=== PATIENT | female | born 1965 | race Caucasian/White ===

== ENCOUNTER 2019-10-12 13:36 | Outpatient (CLI) | payer OTHER, SELFPAY ==
--- NOTE | ~2019-10-12 | US_ITS ---
EXAMINATION: US pelvic complete w TV DATE: 10/12/2019 14:58 INDICATION: Abnormal uterine bleeding. Comparison:No prior studies for comparison. TECHNIQUE: Multiple transabdominal and endovaginal sonographic images of the pelvis performed. FINDINGS: The uterus measures 7.9 x 5.7 x 4 cm. The endometrial complex measures 8 mm. The right ovary measures 3.5 x 3 x 2.5 cm and the left ovary measures 2.1 x 1.5 x 1.4 cm. There is a 2.8 cm right ovarian cyst. There are small follicles in each ovary. There is no free fluid in the pelvis. There are no abnormal masses seen on either side. IMPRESSION: 1. 2.8 cm right ovarian cyst. Reviewed, dictated and finalized at location B.
== END 2019-10-12 13:37 | disposition home or self-care (01) ==
PROVIDERS: PCP Physician Assistant; Visit Provider Physician Assistant
DX: N93.9 Abnormal uterine and vaginal bleeding, unspecified (principal); N83.201 Unspecified ovarian cyst, right side
CPT/HCPCS: 76830; 76856

== ENCOUNTER 2020-07-17 09:52 | Emergency (ER) | payer OTHER, SELFPAY ==
[2020-07-17 10:00] VITALS: BP 125/62; PULSE 77; RESP 13; TEMP 36.8; O2SAT 98
[2020-07-17 10:02] VITALS: BP 125/62; PULSE 83; RESP 11; O2SAT 99
[2020-07-17 10:31] VITALS: BP 124/60; PULSE 66; RESP 18; O2SAT 100
[2020-07-17 11:02] VITALS: BP 110/61; PULSE 69; RESP 14; O2SAT 97
--- NOTE | 2020-07-17 11:32 | ED.GENADULT ---
HPI - General Adult General Chief complaint: Fever Stated complaint: fever, chills Time Seen by Provider: 07/17/20 10:15 History of Present Illness HPI narrative: Patient is a 55-year-old female who comes into the ED today complaining of fever for the last 3 days. Max temperature of 100.7 at home. Fever has been controlled with Tylenol and she took some Tylenol this morning. Over the last 3 days she has been having a headache located over the frontal and superior aspects of her head. Admits to sinus congestion and rhinorrhea. Denies any cough or sore throat or shortness of breath. This morning she felt nauseous and she did have one episode of nonbloody emesis, around that time she felt like she was going to pass out and became diaphoretic. She lives with her who is feeling fine. Has not had her Covid vaccine. She notes that at the beginning of last week she started a new job which required her to use her hands a lot. While at the job she developed a a rash on the right side of her face, says it was 2 small areas and she thinks it might've been an insect bite but she did not feel anything bite her, the rash on the right side of her face was gone the next day. While at work her right hand became painful and the next day it was swollen and red. She did not return to work and has since quit that job. She has a long history of arthritis in both hands. She went to an urgent care and there was concern for skin infection so she was started on Bactrim and she took her last pill this morning. The right hand swelling has resolved. She is having some pain in the dorsal aspect of her hand that is improving compared to what it was last week. She has full range of motion of hand and no numbness or tingling. Currently she is feeling okay, she is not nauseous and is actually feeling hungry. Related Data Allergies Allergy/AdvReac Type Severity Reaction Status Date / Time No Known Allergies Allergy Verified 07/17/20 10:09 Review of Systems Constitutional: Constitutional: Reports as per HPI, Reports fever(s), Reports headache(s), Denies night sweats and Denies weakness ENT: Reports as per HPI Cardiovascular: Cardiovascular: Denies chest pain, Denies edema, Denies leg edema, Denies dyspnea and Denies orthopnea Respiratory: Respiratory: Denies cough and Denies dyspnea Gastrointestinal: Gastrointestinal: Denies abdominal pain, Denies constipation, Denies diarrhea, Denies nausea and Denies vomiting Musculoskeletal: Musculoskeletal: Reports as per HPI, Denies abnormal gait, Denies back pain, Denies numbness and Denies tingling Neurologic: Denies Abnormal speech present, Denies abnormal gait, Denies numbness, Denies tingling and Denies weakness Psychiatric: Psychiatric: Denies homicidal ideation and Denies suicidal ideation [facility] Social History Social History Smoking status: Smoker, status unknown Alcohol intake: current Exam Const: General: cooperative, healthy appearing, comfortable, no acute distress, well developed, alert, awake and Physically active Orientation/consciousness: patient oriented x3 Other: Pleasant, cooperative, well-appearing, no distress HENMT: Head: normal to inspection, normocephalic and atraumatic Ears: external ears normal and normal mastoids bilaterally General nose exam: Normal external nose present Other: She is tender to palpate over frontal sinuses bilaterally. No maxillary sinus tenderness. Mild nasal mucosal edema. She has middle ear effusions bilaterally, right worse than left. TMs are normal otherwise, external ears are normal and mastoids are normal. Oropharynx is clear. Eyes: Pupils: Equal, round and reactive pupils present EOM: EOMs intact bilaterally Neck: Neck: normal visual inspection, full ROM, no lymphadenopathy, no meningeal signs and supple Chest: Chest palpation & inspection: normal inspection of the chest and no tenderness Resp: Effort & Inspection: normal respiratory eff
[2020-07-17 11:55] LABS: Add Urine Microscopic? YES; Appearance Urine Clear (Clear); Bilirubin Urine Negative (Negative); Blood Urine Negative (Negative); Color Urine Straw (Yellow); Glucose Urine UA Negative (Negative); Ketones Urine Negative (Negative); Leukocyte Esterase Ur Negative LEU/UL (Negative); Nitrate Urine Negative (Negative); Protein Urine Negative (Negative); RBC Urine 0-2 /hpf (0-2); Squamous Epithelial Cell Urine Few /hpf (Few); Urobilinogen Urine Negative mg/dL (<2.0); WBC Urine 0-3 /hpf
[2020-07-17] MEDS: LACTATED RINGERS 1,000 ML 999 ML IV CONT (11:55)
[2020-07-17 11:57] LABS: Specific Grav Ur 1.003 (1.001-1.035)
[2020-07-17] MEDS: KETOROLAC 15 MG/ML VIAL (*BKC) IV PUSH (12:01)
[2020-07-17 12:03] LABS: Eosinophils Percent Auto 0.7 % (0-4.4); Hemoglobin 15.1 g/dL (12.0-15.0); Immature Granulocyte Absolute 0.04 K/mm3 (0.00-0.031); Immature Granulocyte Percent A 1.4 % (0-0.5); Lymphocytes Absolute Auto 0.62 K/mm3 (0.9-3.2); Lymphocytes Percent Auto 21.2 % (18.3-44.2); Mean Corpuscular HGB Conc 33.6 g/dl (32-36); Mean Corpuscular Volume 95.3 fl (80-100); Mean Platelet Volume 9.5 fl (7.4-10.4); Monocytes Absolute Auto 0.4 K/mm3 (0.1-0.6); Neutrophils Absolute Auto 1.8 K/mm3 (1.3-6.7); Neutrophils Percent Auto 62.7 % (45.5-73.1); Platelet Count Result 204 k/mm3 (150-375); Red Blood Count 4.72 M/mm3 (4.2-5.4); Red Cell Distribution Width 12.2 % (11.5-14.5); White Blood Count 2.9 K/mm3 (4.5-10.0)
[2020-07-17 12:13] LABS: Alanine Aminotransferase 193 U/L (4-35); Albumin Level 4.5 g/dL (3.5-5.1); Alkaline Phosphatase 166 U/L (38-126); Anion Gap 6 mmol/L (8-16); Aspartate Amino Transferase 146 U/L (14-36); Bilirubin,Total 0.1 mg/dL (0.2-1.3); Blood Urea Nitrogen 11 mg/dL (7-17); Calcium 9.5 mg/dL (8.4-10.2); Carbon Dioxide 27 mmol/L (22-30); Chloride 103 mmol/L (98-107); Estimated Glomerular Filt Rate > 60; Glucose 90 mg/dL (65-105); Sodium 136 mmol/L (137-145)
--- NOTE | 2020-07-17 12:30 | PC.NURSE ---
PT IS REFUSING COVID TESTING. WILL MAKE PROVIDER AWARE.
[2020-07-17 13:30] VITALS: BP 110/62; PULSE 63; RESP 16; O2SAT 100
== END 2020-07-17 13:30 | disposition home or self-care (01) ==
PROVIDERS: Physician Assistant Medical; Emergency Provider Emergency Medicine; PCP Physician Assistant
DX: B34.9 Viral infection, unspecified (principal); R51.9 Headache, unspecified
CPT/HCPCS: 36415; 80053; 81001; 85025; 96361; 96374; 99284; J1885; J7120

== ENCOUNTER 2021-01-21 07:17 | Outpatient (CLI) | payer OTHER, SELFPAY ==
--- NOTE | ~2021-01-21 | US_ITS ---
EXAMINATION: US right upper quadrant EXAM DATE: 01/21/2021 08:01 INDICATION: Abnormal liver function tests. TECHNIQUE: Multiple grayscale and Doppler images of the abdomen right upper quadrant were obtained (b y a technologist who performed the scan) and subsequently reviewed. There is no prior study for mayuri akbar. FINDINGS: The pancreatic head and body are normal in appearance. The pancreatic tail is not visualized. The l iver has normal echogenicity and contour. There are no focal liver lesions identified. There is no evidence of intrahepatic biliary duct dilation. Portal venous flow was seen in the hepatopedal, nor mal direction and has normal Doppler waveform. No right-sided hydronephrosis. Common bile duct measures 4 mm, which is normal. The gallbladder wall is normal in thickness, with ex pected amount of distention. No sonographic evidence of pericholecystic fluid. There is no cholelit hiases. Technologist performing exam reports patient did not demonstrate sonographic Orozco's sign. Please note that this sign is less reliable in patients who have received pain medication. IMPRESSION: 1. Unremarkable abdominal ultrasound exam. Reviewed, dictated and finalized at location B.
== END 2021-01-21 07:18 | disposition home or self-care (01) ==
LOC: ANHIMG 07:24
PROVIDERS: PCP Physician Assistant; Visit Provider Nurse Practitioner Family
DX: R94.5 Abnormal results of liver function studies (principal)
CPT/HCPCS: 76705

== ENCOUNTER → 2022-09-15 08:50 | Outpatient (CLI) | payer OTHER, SELFPAY ==
--- NOTE | ~2022-09-15 | XR_ITS ---
XR lumbar spine 2-3V 09/15/2022 09:15 Indication: Lumbar mass Procedure: 3 views lumbar spine Comparison: No prior studies for comparison. Findings: There is disc narrowing at L5-S1. There is grade 2 spondylolisthesis at L5-S1 secondary to bilateral spondylolysis. Vertebral body heights are maintained. There is dextroscoliosis. Sacral fora men are symmetric. Visualized bowel gas pattern nonobstructive. Lung bases unremarkable. Impression: 1: Severe lumbar spondylosis at L5-S1 with grade 2 spondylolisthesis. 2: Dextroscoliosis. Reviewed, dictated and finalized at location L. Impression: 1: Severe lumbar spondylosis at L5-S1 with grade 2 spondylolisthesis. 2: Dextroscoliosis.
== END ==
PROVIDERS: PCP Nurse Practitioner Family; Visit Provider Nurse Practitioner Family
DX: M47.816 Spondylosis without myelopathy or radiculopathy, lumbar region (principal); M43.16 Spondylolisthesis, lumbar region; M41.9 Scoliosis, unspecified; R22.2 Localized swelling, mass and lump, trunk
CPT/HCPCS: 72100

== ENCOUNTER 2022-09-15 08:54 | Outpatient (CLI) | payer OTHER, SELFPAY ==
--- NOTE | ~2022-09-15 | CT_ITS ---
CT Scan of the Chest without Contrast: Clinical Indication: Lung cancer screening, personal history of nicotine dependence Technique: Contiguous sections were acquired throughout the chest without intravenous contrast. Dose reduction technique was used on this scan by utilizing automated exposure control and iterative recon struction technique. The dose-length product (DLP) was 38.67 mGy-cm. Findings: There is no evidence of any significant mediastinal, hilar or axillary lymphadenopathy. The mediastin al soft tissues appear normal. There is no evidence of pleural or pericardial effusion. The lungs are clear. No pulmonary nodules or infiltrates are noted. Images through the upper abdomen reveal no abnormalities. Impression: Lung RADS 1: Negative. 12 month follow-up screening CT advised. Reviewed, dictated and finalized at location . Impression: Lung RADS 1: Negative. 12 month follow-up screening CT advised.
== END 2022-09-15 08:55 ==
LOC: MICIMG 08:55
PROVIDERS: PCP Nurse Practitioner Family; Visit Provider Nurse Practitioner Family
DX: Z12.2 Encounter for screening for malignant neoplasm of respiratory organs (principal); F17.200 Nicotine dependence, unspecified, uncomplicated; R22.2 Localized swelling, mass and lump, trunk
CPT/HCPCS: 71271

== ENCOUNTER 2022-11-27 13:27 | Outpatient (CLI) | payer OTHER, SELFPAY ==
--- NOTE | ~2022-11-27 | MR_ITS ---
EXAMINATION: MR lumbar spine wo con DATE: 11/27/2022 14:02 INDICATION: Chronic low back pain. TECHNIQUE: Magnetic resonance imaging (MRI) of the lumbar spine was performed without intravenous con trast. Sequences included sagittal T2-weighted FSE, sagittal T2-weighted FS FSE, sagittal T1-weighted FSE, and axial T2-weighted FSE. COMPARISON: Lumbar spine radiograph 09/15/2022 FINDINGS: There is 10 degrees dextroscoliosis of lumbar spine. There are chronic bilateral L5 pars de fects. There is 8 mm anterolisthesis of L5 on S1. There is severely decreased disc height at L5-S1 wi th endplate remodeling including 1/5 loss of L5 vertebral body posteriorly. The distal spinal cord si gnal intensity is normal. The conus medullaris is at L2. There is a skin marker posterior to the L2 a nd L3 spinous processes. The following disc levels are specifically discussed: L1-L2: The disc does not extend beyond the endplate margin. There is mild bilateral facet joint osteo arthritis. There is no neural foraminal stenosis. There is no central canal stenosis. L2-L3: The disc does not extend beyond the endplate margin. There is no facet joint osteoarthritis. T here is no neural foraminal stenosis. There is no central canal stenosis. L3-L4: The disc is mildly bulging. There is no facet joint osteoarthritis. There is mild bilateral ne ural foraminal stenosis. There is no central canal stenosis. L4-L5: The disc does not extend beyond the endplate margin. There is moderate bilateral facet joint o steoarthritis. There is no neural foraminal stenosis. There is no central canal stenosis. L5-S1: The disc does not extend beyond the endplate margin. There is mild bilateral facet joint osteo arthritis. There is mild bilateral neural foraminal stenosis. There is no central canal stenosis. IMPRESSION: 1. Chronic bilateral L5 pars defects with grade 2 anterolisthesis of L5 on S1. 2. Severe lower lumbar spondylosis. 3. Lumbar dextroscoliosis. Reviewed, dictated and finalized at location E.
== END 2022-11-27 13:28 ==
LOC: MICIMG 13:30
PROVIDERS: PCP Nurse Practitioner Family; Visit Provider Nurse Practitioner Family
DX: M54.51 Vertebrogenic low back pain (principal); M54.16 Radiculopathy, lumbar region; M43.06 Spondylolysis, lumbar region; M41.86 Other forms of scoliosis, lumbar region
CPT/HCPCS: 72148

== ENCOUNTER 2025-02-17 00:53 | Emergency (ER) | payer OTHER, SELFPAY ==
--- NOTE | ~2025-02-17 | CT_ITS ---
CT HEAD NON-CONTRAST Clinical History: syncope Comparison: None Technique: Unenhanced axial images skull base to vertex Coronal, sagittal reformats CT images acquired with automatic exposure control for dose reduction DLP: 681 mGy-cm Findings: Sulci, ventricles: Unremarkable. No intracerebral hemorrhage. No evidence acute territorial infarct. No mass effect, midline shift. Bony calvarium intact. Visualized paranasal sinuses: Clear. Mastoid air cells: Clear. IMPRESSION: 1. No acute intracranial findings. Reviewed, dictated and finalized at location R. NUATOR
--- NOTE | ~2025-02-17 | CT_ITS ---
EXAMINATION: CT abdomen pelvis w con DATE: 02/17/2025 02:21 INDICATION: Abdominal pain. TECHNIQUE: Computed tomography (CT) of the abdomen and pelvis was performed with 100 mL Omnipaque 350 intravenous contrast. Automated exposure control and iterative reconstruction technique were employed. The dose-length product was 355.39 mGy-cm. COMPARISON: None. FINDINGS: The visualized portions of the lung bases demonstrate mild atelectasis. No pleural effusion. The heart size is normal. No pericardial effusion. There is a small sliding hiatal hernia. The liver, gallbladder, spleen, pancreas, adrenal glands, and kidneys are normal. There are no dilated loops of bowel. The appendix is not visualized. There are no pathologically enlarged lymph nodes. There is no free intraperitoneal fluid. The periuterine veins and left ovarian vein are enlarged, consistent with pelvic venous insufficiency. There are chronic bilateral L5 pars defects. There is 7 mm anterolisthesis of L5 on S1. There is severe lower lumbar spondylosis. IMPRESSION: 1. Small sliding hiatal hernia. 2. Pelvic venous insufficiency. Reviewed, dictated and finalized at location E. [facility]
[2025-02-17 00:55] VITALS: BP 119/73; PULSE 91; RESP 19; TEMP 36.4; O2SAT 99
--- NOTE | 2025-02-17 01:04 | ECG_ITS ---
Test Date: 2025-02-17 00:59:19 Measurements Intervals [place] Rate: 83 P: 71 [place]: 167 QRS: 54 QRSD: 98 T: 50 QT: 379 QTc: 448 Interpretive Statements SINUS RHYTHM POSSIBLE LEFT ATRIAL ENLARGEMENT [-0.1mV P-WAVE IN V1/V2] INCOMPLETE RIGHT BUNDLE BRANCH BLOCK [90+ ms QRS DURATION, TERMINAL R IN V1/V2, 40+ ms S IN I/aVL/V4/V5/V6] No previous ECG available for comparison Electronically Signed On 02-17-2025 06:42:27 ONLINE FACILITATOR by Enrique Duque M.D.
[2025-02-17 01:13] LABS: Hematocrit 39.3 % (37.0-47.0); Hemoglobin 13.4 g/dL (12.0-15.0); Immature Granulocyte Percent A 0.4 % (0-0.5); Lymphocytes Absolute Auto 1.93 K/mm3 (0.9-3.2); Mean Corpuscular HGB Conc 34.1 g/dl (32-36); Mean Corpuscular Hemoglobin 32.0 pg (26-34); Mean Corpuscular Volume 93.8 fl (80-100); Nucleated Red Blood Cells Absolute Auto 0.000 K/mm3 (0.0-0.012); Nucleated Red Blood Cells Perc 0.0 % (0.0-0.2); Platelet Count Result 286 k/mm3 (150-375); Red Blood Count 4.19 M/mm3 (4.2-5.4); White Blood Count 10.3 K/mm3 (4.5-10.0)
[2025-02-17 01:21] LABS: Add Urine Microscopic? YES; Appearance Urine Clear (Clear); Glucose Urine UA Negative (Negative); Leukocyte Esterase Ur 2+ LEU/UL (Negative); Nitrate Urine Negative (Negative); Non Pathogenic Casts 0-2; Specific Grav Ur 1.016 (1.001-1.035)
[2025-02-17 01:24] LABS: Alanine Aminotransferase 43 U/L (6-35); Albumin Level 4.3 g/dL (3.5-5.1); Alkaline Phosphatase 92 U/L (38-126); Anion Gap 9 mmol/L (4-12); Aspartate Amino Transferase 36 U/L (14-36); Bilirubin,Total 0.4 mg/dL (0.2-1.3); Blood Urea Nitrogen 18 mg/dL (7-17); Calcium 9.3 mg/dL (8.4-10.2); Carbon Dioxide 22 mmol/L (22-30); Chloride 106 mmol/L (98-107); Estimated CRCL calculation 53 ml/min; Estimated Glomerular Filt Rate > 60; Glucose 140 mg/dL (65-110); Lipase 88 U/L (23-300); Potassium 3.5 mmol/L (3.4-5.0); Sodium 137 mmol/L (137-145); Total Protein 7.2 g/dL (6.3-8.2)
[2025-02-17] MEDS: SODIUM CHLORIDE 0.9% IV 1,000 ML 999 ML IV CONT (01:58)
[2025-02-17] MEDS: ONDANSETRON INJ 4 MG/2 ML VIAL IV PUSH (01:58)
--- NOTE | 2025-02-17 02:17 | PC.NURSE ---
Pt to CT scan at this time.
--- NOTE | 2025-02-17 02:17 | ED_ITS ---
HPI - General Adult General Chief complaint: Nausea/Vomiting/Diarrhea <MATTIE Rondon - Last Filed: 02/17/25 02:43> Stated complaint: n/v <MATTIE Rondon - Last Filed: 02/17/25 02:43> Time Seen by Provider: 02/17/25 01:10 <MATTIE Rondon - Last Filed: 02/17/25 02:43> History of Present Illness HPI narrative: 59-year-old female presenting with nausea/vomiting. Patient's family members report that she sat on the toilet then became limp and unresponsive for about one minute. She did not hit her head. Family members state that when she regained consciousness, she was shaking and diaphoretic. Shortly thereafter she began to vomit. Patient is presently reporting nausea and generalized abdominal pain. States her last bowel movement was earlier today. Denies chest pain/shortness of breath, headache, fevers/chills, or urinary concerns. Reports she still has her gallbladder and appendix. <MATTIE Rondon - Last Filed: 02/17/25 02:43> Related Data Allergies/adverse reactions: Allergies Allergy/AdvReac Type Severity Reaction Status Date / Time No Known Allergies Allergy Verified 07/17/20 10:09 <MATTIE Rondon - Last Filed: 02/17/25 02:43> [facility] Social History Social History: Social History Smoking status: Smoker, status unknown Alcohol intake: current <MATTIE Rondon Last Filed: 02/17/25 02:43> Course Vital Signs Vital signs: Vital Signs Temperature 36.4 C 02/17/25 00:55 Pulse Rate 91 02/17/25 00:55 Respiratory Rate 19 02/17/25 00:55 Blood Pressure 119/73 02/17/25 00:55 Pulse Oximetry 99 02/17/25 00:55 Oxygen Delivery Room Air 02/17/25 00:55 Temperature 36.4 C 02/17/25 00:55 Pulse Rate 84 02/17/25 02:57 Respiratory Rate 16 02/17/25 02:57 Blood Pressure 112/69 02/17/25 02:57 Pulse Oximetry 99 02/17/25 02:57 Oxygen Delivery Room Air 02/17/25 00:55 <MATTIE Rondon - Last Filed: 02/17/25 02:43> Vital Signs Temperature 36.4 C 02/17/25 00:55 Pulse Rate 91 02/17/25 00:55 Respiratory Rate 19 02/17/25 00:55 Blood Pressure 119/73 02/17/25 00:55 Pulse Oximetry 99 02/17/25 00:55 Oxygen Delivery Room Air 02/17/25 00:55 Temperature 36.4 C 02/17/25 00:55 Pulse Rate 84 02/17/25 02:57 Respiratory Rate 16 02/17/25 02:57 Blood Pressure 112/69 02/17/25 02:57 Pulse Oximetry 99 02/17/25 02:57 Oxygen Delivery Room Air 02/17/25 00:55 <Zia Bragg MD - Last Filed: 02/17/25 03:30> Medical Decision Making MDM Narrative Medical decision making narrative: 59-year-old female presenting with nausea/vomiting. Patient's family members report that she sat on the toilet then became limp and unresponsive for about one minute. She did not hit her head. Family members state that when she regained consciousness, she was shaking and diaphoretic. Shortly thereafter she began to vomit. Patient is presently reporting nausea and generalized abdominal pain. States her last bowel movement was earlier today. Denies diarrhea, chest pain/shortness of breath, headache, fevers/chills, or urinary concerns. Reports she still has her gallbladder and appendix. Upon my initial assessment patient is not actively vomiting but continues to endorse ongoing nausea. Administered Zofran and 1 L NS which improved patient's symptoms. Lab work demonstrates minimal leukocytosis at 10.3 otherwise labs are within normal limits. CT imaging demonstrates no acute abnormalities. EKG without acute changes. Flu/COVID/RSV negative. Differential diagnosis and treatment plan were discussed with the patient. Patient agrees with discussion and after shared medical decision making agrees with plan of care. All questions were answered to the patient's satisfaction. The patient is appropriate for outpatient treatment and follow-up. Given reasons to return. < MATTIE Rondon - Last Filed: 02/17/25 02:43> 59-year-old female presenting with nausea/vomiting. Patient's family members report that she sat on the toilet then became limp and unresponsive for about one minute. She did not hit her head. Family members state that when she regained consciousness, she was shaking and diaphoretic. Shortly thereafter she began to vomit. Patient is presently reporting nausea and generalized abdominal pain. States her last bowel movement was earlier today. Denies diarrhea, chest pain/shortness of breath, headache, fevers/chills, or urinary concerns. Reports she still has her gallbladder and appendix. Upon my initial assessment patient is not actively vomiting but continues to endorse ongoing nausea. Administered Zofran and 1 L NS which improved patient's symptoms. Lab work demonstrates minimal leukocytosis at 10.3 otherwise labs are within normal limits. CT imaging demonstrates no acute abnormalities Or organ concerns but she does have some subtle evidence of gastroenteritis. No abscess formation. Minimal amount of stool. EKG without acute changes. Flu/COVID/RSV negative. Differential diagnosis and treatment plan were discussed with the patient. Patient agrees with discussion and after shared medical decision making agrees with plan of care. All questions were answered to the patient's satisfaction. Patient has no symptoms on repeat evaluations and feels great after fluids. Does not want any medications to go home with for further symptom control at home. Given strict return precautions and the patient is appropriate for outpatient treatment and follow-up. <Zia Bragg MD - Last Filed: 02/17/25 03:30> Medical Records Medical records reviewed: Yes I reviewed the external patient's medical records. <MATTIE Rondon - Last Filed: 02/17/25 02:43> Vital Signs Vital Signs: Vital Signs Temperature 36.4 C 02/17/25 00:55 Pulse Rate 91 02/17/25 00:55 Respiratory Rate 19 02/17/25 00:55 Blood Pressure 119/73 02/17/25 00:55 Pulse Oximetry 99 02/17/25 00:55 Oxygen Delivery Room Air 02/17/25 00:55 Temperature 36.4 C 02/17/25 00:55 Pulse Rate 84 02/17/25 02:57 Respiratory Rate 16 02/17/25 02:57 Blood Pressure 112/69 02/17/25 02:57 Pulse Oximetry 99 02/17/25 02:57 Oxygen Delivery Room Air 02/17/25 00:55 <MATTIE Rondon - Last Filed: 02/17/25 02:43> Vital Signs Temperature 36.4 C 02/17/25 00:55 Pulse Rate 91 02/17/25 00:55 Respiratory Rate 19 02/17/25 00:55 Blood Pressure 119/73 02/17/25 00:55 Pulse Oximetry 99 02/17/25 00:55 Oxygen Delivery Room Air 02/17/25 00:55 Temperature 36.4 C 02/17/25 00:55 Pulse Rate 84 02/17/25 02:57 Respiratory Rate 16 02/17/25 02:57 Blood Pressure 112/69 02/17/25 02:57 Pulse Oximetry 99 02/17/25 02:57 Oxygen Delivery Room Air 02/17/25 00:55 <Zia Bragg MD - Last Filed: 02/17/25 03:30> Lab Data Lab results reviewed: Yes I reviewed the patient's lab results. <MATTIE Rondon - Last Filed: 02/17/25 02:43> Result diagrams: 02/17/25 01:06 02/17/25 01:06 <MATTIE Rondon - Last Filed: 02/17/25 02:43> Labs: Lab Results 02/17/25 02/17/25 02/17/25 Range/Units 01:06 01:14 02:30 WBC 10.3 H (4.5-10.0) K/mm3 RBC 4.19 L (4.2-5.4) M/mm3 Hgb 13.4 (12.0-15.0) g/dL Hct 39.3 (37.0-47.0) % MCV 93.8 (80-100) fl MCH 32.0 (26-34) pg MCHC 34.1 (32-36) g/dl RDW 12.0 (11.5-14.5) % Plt Count 286 (150-375) k/mm3 MPV 9.3 (7.4-10.4) fl Immature Gran % (Auto) 0.4 (0-0.5) % Neut % (Auto) 74.7 H (45.5-73.1) % Lymph % (Auto) 18.7 (18.3-44.2) % [place] % (Auto) 4.8 (2.6-8.5) % Eos % (Auto) 0.9 (0-4.4) % Baso % (Auto) 0.5 (0.2-1.2) % Lymph # (Auto) 1.93 (0.9-3.2) K/mm3 [place] # (Auto) 0.5 (0.1-0.6) K/mm3 Eos # (Auto) 0.1 (0-0.3) K/mm3 Baso # (Auto) 0.1 (0.0-0.1) K/mm3 Abs Immat Gran (auto) 0.04 H (0.00-0.031) K/mm3 Absolute Neuts (auto) 7.7 H (1.3-6.7) K/mm3 Absolute Nucleated RBC 0.000 (0.0-0.012) K/mm3 Nucleated RBC % 0.0 (0.0-0.2) % Sodium 137 (137-145) mmol/L Potassium 3.5 (3.4-5.0) mmol/L Chloride 106 (98-107) mmol/L Carbon Dioxide 22 (22-30) mmol/L Anion Gap 9 (4-12) mmol/L BUN 18 H (7-17) mg/dL Creatinine 0.75 (0.7-1.0) mg/dL Estim Creat Clear Calc 53 ml/min Estimated GFR > 60 (59 - ) Glucose 140 H (65-110) mg/dL Calcium 9.3 (8.4-10.2) mg/dL Total Bilirubin 0.4 (0.2-1.3) mg/dL AST 36 (14-36) U/L ALT 43 H (6-35) U/L Alkaline Phosphatase 92 (38-126) U/L Total Protein 7.2 (6.3-8.2) g/dL Albumin 4.3 (3.5-5.1) g/dL Lipase 88 (23-300) U/L Urine Color Yellow (Yellow) Urine Appearance Clear (Clear) Urine pH 6.0 (5.0-9.0) Ur Specific [place] 1.016 (1.001-1.035) Urine Protein Negative (Negative) mg/dL Urine Glucose (UA) Negative (Negative) mg/dL Urine Ketones Trace H (Negative) mg/dL Ur Blood (Man) Negative (Negative) Urine Nitrate Negative (Negative) Urine Bilirubin Negative (Negative) Urine Urobilinogen 0.2 (<2.0) mg/dL Leukocyte Esterase Rfl 2+ H (Negative) VASQUEZ/UL Urine RBC 0-2 (0-2) /hpf Urine WBC 11-20 H (0-3) /hpf Ur Squamous Epith Cells Occasional (Few) /hpf Urine Bacteria None seen /hpf Urine Casts 0-2 Influenza A (RT-PCR) Negative (Negative) Influenza B (RT-PCR) Negative (Negative) RSV (RT-PCR) Negative (Negative) SARS-CoV-2 RNA (RT-PCR) Negative (Negative) <MATTIE Rondon - Last Filed: 02/17/25 02:43> Lab Results 02/17/25 02/17/25 02/17/25 Range/Units 01:06 01:14 02:30 WBC 10.3 H (4.5-10.0) K/mm3 RBC 4.19 L (4.2-5.4) M/mm3 Hgb 13.4 (12.0-15.0) g/dL Hct 39.3 (37.0-47.0) % MCV 93.8 (80-100) fl MCH 32.0 (26-34) pg MCHC 34.1 (32-36) g/dl RDW 12.0 (11.5-14.5) % Plt Count 286 (150-375) k/mm3 MPV 9.3 (7.4-10.4) fl Immature Gran % (Auto) 0.4 (0-0.5) % Neut % (Auto) 74.7 H (45.5-73.1) % Lymph % (Auto) 18.7 (18.3-44.2) % [place] % (Auto) 4.8 (2.6-8.5) % Eos % (Auto) 0.9 (0-4.4) % Baso % (Auto) 0.5 (0.2-1.2) % Lymph # (Auto) 1.93 (0.9-3.2) K/mm3 [place] # (Auto) 0.5 (0.1-0.6) K/mm3 Eos # (Auto) 0.1 (0-0.3) K/mm3 Baso # (Auto) 0.1 (0.0-0.1) K/mm3 Abs Immat Gran (auto) 0.04 H (0.00-0.031) K/mm3 Absolute Neuts (auto) 7.7 H (1.3-6.7) K/mm3 Absolute Nucleated RBC 0.000 (0.0-0.012) K/mm3 Nucleated RBC % 0.0 (0.0-0.2) % Sodium 137 (137-145) mmol/L Potassium 3.5 (3.4-5.0) mmol/L Chloride 106 (98-107) mmol/L Carbon Dioxide 22 (22-30) mmol/L Anion Gap 9 (4-12) mmol/L BUN 18 H (7-17) mg/dL Creatinine 0.75 (0.7-1.0) mg/dL Estim Creat Clear Calc 53 ml/min Estimated GFR > 60 (59 - ) Glucose 140 H (65-110) mg/dL Calcium 9.3 (8.4-10.2) mg/dL Total Bilirubin 0.4 (0.2-1.3) mg/dL AST 36 (14-36) U/L ALT 43 H (6-35) U/L Alkaline Phosphatase 92 (38-126) U/L Total Protein 7.2 (6.3-8.2) g/dL Albumin 4.3 (3.5-5.1) g/dL Lipase 88 (23-300) U/L Urine Color Yellow (Yellow) Urine Appearance Clear (Clear) Urine pH 6.0 (5.0-9.0) Ur Specific [place] 1.016 (1.001-1.035) Urine Protein Negative (Negative) mg/dL Urine Glucose (UA) Negative (Negative) mg/dL Urine Ketones Trace H (Negative) mg/dL Ur Blood (Man) Negative (Negative) Urine Nitrate Negative (Negative) Urine Bilirubin Negative (Negative) Urine Urobilinogen 0.2 (<2.0) mg/dL Leukocyte Esterase Rfl 2+ H (Negative) VASQUEZ/UL Urine RBC 0-2 (0-2) /hpf Urine WBC 11-20 H (0-3) /hpf Ur Squamous Epith Cells Occasional (Few) /hpf Urine Bacteria None seen /hpf Urine Casts 0-2 Influenza A (RT-PCR) Negative (Negative) Influenza B (RT-PCR) Negative (Negative) RSV (RT-PCR) Negative (Negative) SARS-CoV-2 RNA (RT-PCR) Negative (Negative) <Zia Bragg MD - Last Filed: 02/17/25 03:30> ECG Data EKG #1: ECG completion date: 02/17/25 <MATTIE Rondon - Last Filed: 02/17/25 02:43> ECG completion time: 00:59 <MATTIE Rondon - Last Filed: 02/17/25 02:43> EKG Interpretation: normal rate, sinus rhythm and no ST changes <MATTIE Rondon - Last Filed: 02/17/25 02:43> Discharge Plan Discharge Clinical Impression: Gastroenteritis, Vomiting <MATTIE Rondon - Last Filed: 02/17/25 02:43> Patient Disposition: Home <MATTIE Rondon - Last Filed: 02/17/25 02:43> Condition: Stable <MATTIE Rondon - Last Filed: 02/17/25 02:43> Instructions: Gastritis (ED), Syncope (ED), Acute Nausea and Vomiting (ED) <MATTIE Rondon - Last Filed: 02/17/25 02:43> Additional Instructions: Return to the ER if you experience fever, abdominal pain with nausea and vomiting, you are unable to keep down liquids or solids, blood in the stool, pain or burning with urination, blood in the urine or any other symptoms that are concerning to you. Small frequent meals. Dexter diet. Hydrate with Gatorade and water Follow up with primary care doctor. <MATTIE Rondon - Last Filed: 02/17/25 02:43> Patient Language: British <MATTIE Rondon - Last Filed: 02/17/25 02:43> Prescriptions: No Action fluticasone propionate [Flonase Allergy Relief] 50 mcg/actuation spray,suspension 1 spray intranasal DAILY PRN (Reason: nasal congestion) Qty: 16 0RF Rx Instructions: administer into each nostril Zyrtec 10 mg capsule 10 mg PO DAILY PRN (Reason: allergy symptoms) Qty: 20 0RF ibuprofen 600 mg tablet 600 mg PO TID PRN (Reason: headache) Qty: 20 0RF <MATTIE Rondon - Last Filed: 02/17/25 02:43> Follow-up/Referrals: PHYSICIAN,CAR REPAIRER HELPER [Primary Care Provider, Internal Medicine] <MATTIE Rondon - Last Filed: 02/17/25 02:43> Time of Disposition: 03:30 <MATTIE Rondon - Last Filed: 02/17/25 02:43> 03:30 <Zia Bragg MD - Last Filed: 02/17/25 03:30>
[2025-02-17 02:57] VITALS: BP 112/69; PULSE 84; RESP 16; O2SAT 99
[2025-02-17 03:12] LABS: Influenza A QL RT-PCR Negative (Negative); Influenza B QL RT-PCR Negative (Negative); RSV RNA, RT-PCR Negative (Negative); SARS-CoV-2 RNA PCR Negative (Negative)
== END 2025-02-17 03:30 | disposition home or self-care (01) ==
PROVIDERS: Student in an Organized Health Care Education/Training Program
DX: K52.9 Noninfective gastroenteritis and colitis, unspecified (principal); Z20.822 Contact with and (suspected) exposure to COVID-19
CPT/HCPCS: 36415; 70450; 74177; 80053; 81001; 83690; 85025; 87086; 87637; 93005; 96361; 96374; 99284; J2405; J7030; Q9967